=== PATIENT | female | born 1985 | race Caucasian/White ===

== ENCOUNTER 2020-10-28 20:10 | Emergency (ER) | payer OTHER ==
--- OUTSIDE RECORDS SUMMARY | 2020-10-28 20:13 | XMS REPORT | Continuity of Care Document ---
:1985 Author Organization [facility] t Address [address] [place] [address] Care Team Providers Name Role Phone Isaac MARTINEZ, Siraj Primary Care Physician Dc ELECTRONIC FIELD SERVICE ENGINEER, J Attending Clinician Nurse, Urgent Attending Clinician Unavailable Problems Condition Condition Condition Status Onset Resolution Last Treating Co mments Source Name Details Category Date Date Treatment Clinician Date Bipolar Bipolar Problem Active 0 [place] disorder Disorder 8-27 da 00:00: Medical 00 Group Dyspareuni Dyspareuni Problem Active 0 [facility] a a 3-20 da 00:00: Medical 00 Group Bacterial Bacterial Problem Active [facility] vaginosis Vaginosis [facility] Generalize Generalize Problem Active [facility] [place] d anxiety d Anxiety da disorder Disorder Medica l Group Hyperglyce Hyperglyce Problem Active [facility] dia dia da [facility] Allergies, Adverse Reactions, Alerts Allergy Allergy Status Severity Reaction(s) Onset Inactive Treating Comm ents Source Name Type Date Date Clinician Morphine Propensi Active Hives 0 [place] ty to 3-18 [facility] adverse 00:00: st reaction 00 s to drug Social History Social Habit Start Date Stop Date Quantity Comments Source History SDOH [place] [facility] Alcohol Std Drinks History SDOH [place] [facility] Alcohol Binge Tobacco use and 2018-09-26 2018-09-26 Former user [facility] exposure 00:00:00 00:00:00 Alcohol intake 2018-09-26 2018-09-26 Current [place] [facility] 00:00:00 00:00:00 non-drinker of alcohol (finding) History SDOH 2018-09-26 2018-09-26 1 [place] [facility] Alcohol Frequency 00:00:00 00:00:00 History of tobacco 2018-08-27 Chews Tobacco [facility] use 00:00:00 Sex Ass[birth year] At [birth year] [facility] 00:00:00 00:00:00 Smoking Status Start Date Stop Date Source Never Smoker [facility] Former smoker 2018-09-26 00:00:00 2018-09-26 00:00:00 [place] [facility] Medications Ordered Filled Start Stop Current Ordering Indication Dosage Frequency Signature Comments Components Source Medication Medication Date Date Medication? Clinician (SIG) Name Name citalopram Yes 40mg QD Take 40 mg [place] (CeleXA) 40 3-20 by mouth Meth bela MG tablet 19:27: nightly. st 17 doxepin Yes 100mg QD Take 100 [place] (SINEquan) 3-20 mg by [facility] 100 MG 19:27: mouth st capsule 17 nightly as needed for sleep. hydrOXYzine Yes 50mg Q.5D Take 50 mg [place] (ATARAX) 25 3-20 by mouth 2 Me thodi MG tablet 19:27: (two) st 17 times a day as needed for anxiety. lamoTRIgine Yes 25mg QD Take 25 mg [place] (LaMICtal) 3-20 by mouth Metho di 25 MG 19:27: daily. st tablet 17 acetaminoph acetaminoph No acetaminop [place] en 300 en 300 hen 300 da mg-codeine mg-codeine mg-codeine Medical 30 mg 30 mg 30 mg Group tablet 1-2 tablet 1-2 tablet 1-2 p.o. q 6 p.o. q 6 p.o. q 6 hours PRN hours PRN hours PRN pain pain pain buspirone buspirone No buspirone [place] 15 mg 15 mg 15 mg da tablet Take tablet Take tablet Medical 1 tablet 1 tablet Take 1 Group twice a day twice a day tablet by oral by oral twice a route. route. day by oral route. buspirone buspirone No buspirone [place] 30 mg 30 mg 30 mg da tablet Take tablet Take tablet Medical 1 tablet 1 tablet Take 1 Group twice a day twice a day tablet by oral by oral twice a route. route. day by oral route. ciprofloxac ciprofloxac No ciprofloxa [place] in 500 mg in 500 mg [place] 500 mg da tablet Take tablet Take tablet Medical 1 tablet 1 tablet Take 1 Group every 12 every 12 tablet hours by hours by every 12 oral route oral route hours by for 7 days. for 7 days. oral route for 7 days. citalopram citalopram No citalopram [place] 10 mg 10 mg 10 mg da tablet tablet tablet Medical Group citalopram citalopram No citalopram [place] 40 mg 40 mg 40 mg da tablet tablet tablet Medical Group clonazepam clonazepam No clonazepam [place] 1 mg tablet 1 mg tablet 1 mg d a TAKE 1 TAKE 1 tablet Medical TABLET BY TABLET BY TAKE 1 Jacob up MOUTH TWICE MOUTH TWICE TABLET BY DAILY DAILY MOUTH NEEDED FOR NEEDED FOR TWICE ANXIETY ANXIETY DAILY NEEDED FOR ANXIETY divalproex divalproex No divalproex [place] 500 mg 500 mg 500 mg da tablet,estevan tablet,estevan tablet,del Medical yed release yed release ayed G roup release doxepin 100 doxepin 100 No doxepin [place] mg capsule mg capsule 100 mg d a capsule Medical Group doxepin 25 doxepin 25 No doxepin 25 [place] mg capsule mg capsule mg capsule da Medical Group doxepin 50 doxepin 50 No doxepin 50 [place] mg capsule mg capsule mg capsule da Medical Group famotidine famotidine No famotidine [place] 20 mg 20 mg 20 mg da tablet tablet tablet Medical Group Flagyl 500 Flagyl 500 No 1 BID Flagyl 500 [place] mg tablet mg tablet mg tablet da Take 1 Take 1 Take 1 Medical tablet tablet tablet Group twice a day twice a day twice a by oral by oral day by route for 7 route for 7 oral route days. days. for 7 days. fluconazole fluconazole No fluconazol [place] 100 mg 100 mg e 100 mg da tablet tablet tablet Medical Group hydroxyzine hydroxyzine No hydroxyzin [place] HCl 50 mg HCl 50 mg e HCl 50 d a tablet tablet mg tablet Medica l Group hydroxyzine hydroxyzine No hydroxyzin [place] pamoate 50 pamoate 50 e pamoate da mg capsule mg capsule 50 mg Me dical capsule Group ibuprofen ibuprofen No ibuprofen [place] 800 mg 800 mg 800 mg da tablet Take tablet Take tablet Medical 1 tablet 1 tablet Take 1 Group every 6 every 6 tablet hours by hours by every 6 oral route oral route hours by as needed. as needed. oral route as needed. lamotrigine lamotrigine No lamotrigin [place] 25 mg 25 mg e 25 mg da tablet tablet tablet Medical Group medroxyprog medroxyprog No medroxypro [place] esterone 10 esterone 10 gesterone da mg tablet mg tablet 10 mg Medi jeanine two p.o. q two p.o. q tablet two Group day for one day for one p.o. q day month month for one month MoviPrep MoviPrep No MoviPrep [facility] 100 100 100 da gram-7.5 gram-7.5 gram-7.5 Med ical gram-2.691 gram-2.691 gram-2.691 Group gram oral gram oral gram oral powder powder powder packet packet packet Off Deep Off Deep No Off Deep [place] [facility] Schwab Dry Schwab Dry Schwab Dry da 25 % 25 % 25 % Medical topical topical topical Group spray spray spray powder powder powder oxcarbazepi oxcarbazepi No oxcarbazep [place] ne 600 mg ne 600 mg ine 600 mg da tablet tablet tablet Medical Group pantoprazol pantoprazol No pantoprazo [place] e 40 mg e 40 mg le 40 mg da tablet,estevan tablet,estevan tablet,del Medical yed release yed release ayed G roup release tamsulosin tamsulosin No tamsulosin [place] 0.4 mg 0.4 mg 0.4 mg da capsule capsule capsule Medica l Group Immunizations Ordered Immunization Filled Immunization Date Status Commen ts Source Name Name GUI TOVAR 2018-09-28 [facility] 00:00:00 [facility] Vital Signs Vital Name Observation Time Observation Value Comments Source BP Diastolic 2019-03-06 00:00:00 78 mm[Hg] [facility] Height 2019-03-06 00:00:00 24 [in_i] [facility] BMI (Body Mass 2019-03-06 00:00:00 208.7 [facility]m2 [facility] BP Systolic 2019-03-06 00:00:00 119 mm[Hg] [facility] Body Weight 2019-03-06 00:00:00 171 [lb_av] [facility] Procedures Procedure Date / Time Performing Clinician Source Performed Removal of Ovary/tube(s) 2016-10-01 00:00:00 [facility] Removal of Cervix 2016-10-01 00:00:00 [facility] Removal of Spleen Total 2012-07-12 00[facility]00:00 [facility] Hysterectomy 2010-04-02 00:00:00 [facility] Cholecystectomy 2009-07-12 00:00:00 [facility] Appendectomy 1995-07-12 00:00:00 [facility] Plan of Care Planned Activity Planned Date Details Comments Source Future Scheduled Test 2021-02-09 INFLUENZA VACCINE [place] [facility] 00:00:00 [code = INFLUENZA VACCINE] Diagnostic Test 2019-03-06 [facility] Pending 00:00:00 [code = [place], Group vaginal] Diagnostic Test 2019-03-06 pap test, thinprep, [facility] [facility] Pending 00:00:00 cervical [code = Group pap test, thinprep, cervical] Diagnostic Test 2019-03-06 urinalysis, [facility] Pending 00:00:00 dipstick [code = Group urinalysis, dipstick] Future Scheduled Test 2004 Screening for [place] [facility] 00:00:00 malignant neoplasm of cervix (procedure) [code = 296521764] Future Scheduled Test 2001 Hepatitis C [place] [facility] 00:00:00 screening (procedure) [code = 063913242] Future Scheduled Test 1999 COVID-19 VACCINE Marko sylvia [facility] 00:00:00 (1) [code = COVID-19 VACCINE (1)] Encounters Start End Encounter Admission Attending Care Care Encounter Source Date/Time Date/Time Type Type Clinicians Facility Department ID 2020-09-02 2020-09-02 Telephone Dc, RENEE [id number] 00:00:00 00:00:00 Gabriela [facility] [id number] Surgical [id number] Specialti [id number] es 370 Kimberly 2020-09-02 2020-09-02 Telephone Nurse, Raymond Phillip [id number] 00:00:00 00:00:00 Urgent Pediatric [id number] s and [id number] Adult [id number] Primary [facility] 2019-03-06 2019-03-06 Colin [facility] [place] - [id number] olman 00:00:00 00:00:00 Discovery marquies Truong MD: [address] [place] [address] - [facility] [address], [place] [address] , Ph. [phone] Results Test Description Test Time Test Comments Results Result Comments Source Urinalysis macro (dipstick) panel - Urine 2019-03-06 15:51:0 0 Test Item Value Reference Range Interpretation Comme nts Leukocytes (test code = Leukocytes) Negative Nitrite (test code = Nitrite) negative Urobilinogen (test code = Urobilinogen) .2 Protein (test code = Protein) Negative pH (test code = pH) 6.5 Blood (test code = Blood) Hemolyzed: Trace Specific [place] (test code = Specific [place]) 1.025 Ketone (test code = Ketone) Negative Bilirubin (test code = Bilirubin) Negative Glucose (test code = Glucose) Negative Appearance (test code = Appearance) Clear Color (test code = Color) Yellow [facility]
[2020-10-28 23:12] LABS: Urine Blood Trace-intact (Negative); Urine Glucose Negative (Negative); Urine Protein Negative (Negative); Urine Specific Gravity 1.025 (1.005-1.030)
[2020-10-28] MEDS ORDERED: MEPERIDINE HCL 50 MG/ML ONE (23:19)
[2020-10-28] MEDS ORDERED: ONDANSETRON 4 MG/2 ML VIAL ONE (23:19)
[2020-10-28 23:36] LABS: Absolute Lymphocytes (CBC) 4.5 K/uL (0.7-4.9); MPV 9.4 fL (7.6-11.3); RBC Red Blood Cell Count 4.21 M/uL (3.86-4.86)
[2020-10-28 23:55] LABS: Potassium 3.2 mmol/L (3.5-5.1)
[2020-10-29] MEDS ORDERED: KETOROLAC 30 MG/ML INJ ONE (00:52)
[2020-10-29 01:32] LABS: Urine Amorphous Sediment 4+ /HPF (NONE SEEN); Urine Bacteria <20 /HPF (<20); Urine RBC <5 /HPF (NONE SEEN); Urine Urothelial Cells <5 /HPF (NONE SEEN)
[2020-10-29 01:34] LABS: Urine Specific Gravity/Preg 1.025 (1.005-1.030)
--- NOTE | 2020-10-29 02:08 | ER ---
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 It jb4 fell out from under me and now my right arm, back, and left hip all hurt. I tried to tough it out but could not take the pain anymore. I did not pass out or hit my head. Coronavirus screen: Client denies travel out of the [place] in the last 14 days. At this time, the client does not indicate any symptoms associated with coronavirus-19. Ebola Screen: No symptoms or risks identified at this time. Initial Sepsis Screen: Does the patient meet any 2 criteria? No. Patient's initial sepsis screen is negative. Does the patient have a suspected source of infection? No. Patient's initial sepsis screen is negative. Risk Assessment: Do you want to hurt yourself or someone else? Patient reports no desire to harm self or others. Onset of symptoms was October 28, 2020. Transition of care: patient was not received from another setting of care. 20:57 Method Of Arrival: Ambulatory jb4 20:57 Acuity: YAIR 3 jb4 Historical: - Allergies: 21:01 Morphine; jb4 - PMHx: 21:01 thrombocytopenia; jb4 - PSHx: 21:01 Hysterectomy; splenectomy; Cholecystectomy; Appendectomy; jb4 - Immunization history:: Adult Immunizations up to date. - Social history:: Smoking status: Patient denies any tobacco usage or history of. Patient/guardian denies using alcohol, street drugs. Screenin:55 Abuse screen: Denies threats or abuse. Denies injuries from another. Nutritional sf screening: No deficits noted. Tuberculosis screening: No symptoms or risk factors identified. Fall Risk None identified. No fall in past 12 months (0 pts). No secondary diagnosis (0 pts). IV access (20 points). Ambulatory Aid- None/Bed Rest/Nurse Assist (0 pts). Gait- Normal/Bed Rest/Wheelchair (0 pts) Mental Status- Oriented to own ability (0 pts). Total Pham Fall Scale indicates No Risk (0-24 pts). Assessment: 22:55 General: Appears in no apparent distress. uncomfortable, Behavior is calm, cooperative. sf Pain: Complains of pain in back. Neuro: No deficits noted. Level of Consciousness is awake, alert, Oriented to person, place, time, situation. Cardiovascular: No deficits noted. Respiratory: No deficits noted. GI: No deficits noted. : No signs and/or symptoms were reported regarding the genitourinary system. Urine is cloudy. Derm: No signs and/or symptoms reported regarding the dermatologic system. Musculoskeletal: Circulation, motion, and sensation intact. Range of motion: intact in all extremities, Reports pain in back. 10/29 00:00 Reassessment: Patient appears in no apparent distress at this time. No changes from sf previously documented assessment. Patient and/or family updated on plan of care and expected duration. Pain level reassessed. Patient is alert, oriented x 3, equal unlabored respirations, skin warm/dry/pink. 00:40 Reassessment: Patient appears in no apparent distress at this time. Patient and/or sf family updated on plan of care and expected duration. Pain level reassessed. Patient is alert, oriented x 3, equal unlabored respirations, skin warm/dry/pink. 01:33 Reassessment: Patient appears in no apparent distress at this time. Patient and/or sf family updated on plan of care and expected duration. Pain level reassessed. Patient is alert, oriented x 3, equal unlabored respirations, skin warm/dry/pink. Patient states feeling better. Patient states symptoms have improved. Pain: Complains of pain in back Pain currently is 3 out of 10 on a pain scale. Vital Signs: 10/28 20:57 BP 122 / 86; Pulse 92; Resp 18; Temp 98.6(O); Pulse Ox 100% on R/A; Weight 78.02 kg jb4 (R); Height 5 ft. 0 in. (152.40 cm) (R); Pain /10; 22:50 BP 121 / 70 LA (auto/reg); Pulse 87; Pulse Ox 100% on R/A; jp3 23:00 BP 127 / 74; Pulse 80; Resp 16; Pulse Ox 99% ; sf 10/29 00:00 BP 118 / 73; Pulse 81; Resp 16; Pulse Ox 100% ; sf 00:39 BP 123 / 81; Pulse 87; Resp 16; Pulse Ox 99% ; sf 01:00 BP 123 / 64; Pulse 86; Resp 16; Pulse Ox 100% ; sf 02:00 BP 105 / 66; Pulse 81; Resp 16; Pulse Ox 97% ; sf 10/28 20:57 Body Mass Index 33.59 (78.02 kg, 152.40 cm) jb4 ED Course: 10/28 20:11 Patient arrived in ED. cl3 21:00 Triage completed. jb4 21:01 Arm band placed on right wrist. jb4 22:33 Petey Nova NP is PHCP. pm1 22:33 Kareem King MD is Attending Physician. pm1 22:50 Initial lab(s) drawn, by me, sent to lab. Inserted saline lock: 20 gauge in right jp3 antecubital area, using aseptic technique. Blood collected. 22:55 Bay Fuentes, YENI is Primary Nurse. sf 22:55 No provider procedures requiring assistance completed. sf 22:56 Bed in low position. Call light in reach. Side rails up X 1. Warm blanket given. Verbal jp3 reassurance given. Pulse ox on. NIBP on. 23:00 Urine collected: clean catch specimen, cloudy. sf 10/29 00:53 CT Chest, Abdomen, Pelvis - W/Contrast In Process Unspecified. EDMS 02:35 IV discontinued, intact, bleeding controlled, No redness/swelling at site. Pressure sf dressing applied. Administered Medications: 10/28 23:00 Drug: Demerol (meperidine) 50 mg Route: IVP; Site: right antecubital; sf 10/29 00:00 Follow up: Response: No adverse reaction; Pain is unchanged, physician notified sf 10/28 23:00 Drug: Zofran (Ondansetron) 4 mg Route: IVP; Site: right antecubital; sf 10/29 00:00 Follow up: Response: No adverse reaction; Pain is unchanged, physician notified 00:43 Drug: Ketorolac 30 mg Route: IVP; Site: right antecubital; sf 02:36 Follow up: Response: No adverse reaction; Pain is decreased sf Outcome: 02:07 Discharge ordered by MD. pm1 02:35 Discharged to home ambulatory. sf 02:35 Condition: stable 02:35 Discharge instructions given to patient, Instructed on discharge instructions, follow up and referral plans. medication usage, Demonstrated understanding of instructions, follow-up care, medications, Prescriptions given X 3. 02:36 Patient left the ED. sf Signatures: Dispatcher [employer] EDMS Petey Nova NP PENSIONHOLDER INFORMATION CLERK pm1 Ravi Lemus, RN RN jb4 Ritesh Michele 3 Truman Cruz cl3 Bay Fuentes RN RN sf
--- NOTE | 2020-10-29 02:08 | EDPHYS ---
Physician Documentation [facility] Name: Maria Victoria Avery Age: 35 yrs Sex: Female : 1985 Arrival Date: 10/28/2020 Time: 20:11 Bed 20 Private MD: ED Physician Kareem King HPI: 10/28 23:06 This 35 yrs old Female presents to ER via Ambulatory with complaints of Low pm1 Back Pain, Right Side Pain. 23:06 The patient presents with pain that is acute. The symptoms are located in the low back, pm1 right hip pain. The pain does not radiate. The problem was sustained during a fall, from the ladder on top bunk bed, approximately 5 feet. Onset: The symptoms/episode began/occurred today. Modifying factors: The patient symptoms are alleviated by nothing, the patient symptoms are aggravated by movement. Associated signs and symptoms: Pertinent negatives: headache, head injury, LOC, neck pain. Severity of symptoms: in the emergency department the symptoms are unchanged. The patient has not experienced similar symptoms in the past. Historical: - Allergies: 21:01 Morphine; jb4 - PMHx: 21:01 thrombocytopenia; jb4 - PSHx: 21:01 Hysterectomy; splenectomy; Cholecystectomy; Appendectomy; jb4 - Immunization history:: Adult Immunizations up to date. - Social history:: Smoking status: Patient denies any tobacco usage or history of. Patient/guardian denies using alcohol, street drugs. ROS: 23:06 Constitutional: Negative for fever, chills, and weight loss, Neck: Negative for injury, pm1 pain, and swelling, Cardiovascular: Negative for chest pain, palpitations, and edema, Respiratory: Negative for shortness of breath, cough, wheezing, and pleuritic chest pain, Abdomen/GI: Negative for abdominal pain, nausea, vomiting, diarrhea, and constipation, : Negative for injury, bleeding, discharge, and swelling, MS/Extremity: Negative for injury and deformity, Skin: Negative for injury, rash, and discoloration. 23:06 Neuro: Negative for headache, weakness, numbness, tingling, and seizure. 23:06 Back: Positive for of the left low back and right mid back, pain. Exam: 23:06 Constitutional: This is a well developed, well nourished patient who is awake, alert, pm1 and in no acute distress. Head/Face: Normocephalic, atraumatic. Neck: Trachea midline, no thyromegaly or masses palpated, and no cervical lymphadenopathy. Supple, full range of motion without nuchal rigidity, or vertebral point tenderness. No Meningismus. Chest/axilla: Normal chest wall appearance and motion. Nontender with no deformity. No lesions are appreciated. 23:06 Skin: Warm, dry with normal turgor. Normal color with no rashes, no lesions, and no evidence of cellulitis. MS/ Extremity: Pulses equal, no cyanosis. Neurovascular intact. Full, normal range of motion. 23:06 Cardiovascular: Exam negative for acute changes, Rate: normal, Rhythm: regular, Pulses: no pulse deficits are appreciated. 23:06 Respiratory: Exam negative for acute changes, respiratory distress, shortness of breath, Breath sounds: are clear throughout. 23:06 Abdomen/GI: Exam negative for acute changes, Inspection: abdomen appears normal, Palpation: abdomen is soft and non-tender, in all quadrants. 23:06 Back: pain, that is mild, of the left low back and right mid back. 23:06 Neuro: Exam negative for acute changes, Orientation: is normal, Mentation: is normal, Motor: is normal, moves all fours. Vital Signs: 20:57 BP 122 / 86; Pulse 92; Resp 18; Temp 98.6(O); Pulse Ox 100% on R/A; Weight 78.02 kg jb4 (R); Height 5 ft. 0 in. (152.40 cm) (R); Pain 7/10; 22:50 BP 121 / 70 LA (auto/reg); Pulse 87; Pulse Ox 100% on R/A; jp3 23:00 BP 127 / 74; Pulse 80; Resp 16; Pulse Ox 99% ; sf 10/29 00:00 BP 118 / 73; Pulse 81; Resp 16; Pulse Ox 100% ; sf 00:39 BP 123 / 81; Pulse 87; Resp 16; Pulse Ox 99% ; sf 01:00 BP 123 / 64; Pulse 86; Resp 16; Pulse Ox 100% ; sf 02:00 BP 105 / 66; Pulse 81; Resp 16; Pulse Ox 97% ; sf 10/28 20:57 Body Mass Index 33.59 (78.02 kg, 152.40 cm) jb4 MDM: 04/19 22:35 Patient medically screened. [facility] 10/29 02:05 Data reviewed: vital signs. Data interpreted: Pulse oximetry: on room air is 100 %. pm1 Interpretation: normal. Counseling: I had a detailed discussion with the patient and/or guardian regarding: the historical points, exam findings, and any diagnostic results supporting the discharge/admit diagnosis, lab results, radiology results, the need for outpatient follow up, to return to the emergency department if symptoms worsen or persist or if there are any questions or concerns that arise at home. 10/28 22:42 Order name: BMP; Complete Time: 23:57 pm1 10/28 22:42 Order name: CBC with Diff; Complete Time: 23:49 pm1 10/28 22:42 Order name: CT Chest, Abdomen, Pelvis - W/Contrast pm1 10/28 23:12 Order name: Urine Dipstick-Ancillary; Complete Time: 23:49 EDMS 10/28 23:16 Order name: Urine Microscopic Only; Complete Time: 02:05 10/28 23:16 Order name: Urine --Ancillary (enter results); Complete Time: 02:05 mw2 10/28 22:42 Order name: IV Saline Lock; Complete Time: 22:56 pm1 10/28 22:42 Order name: Urine Dipstick-Ancillary (obtain specimen); Complete Time: 23:06 pm1 10/28 22:42 Order name: Urine Test (obtain specimen); Complete Time: 23:06 pm1 Administered Medications: 10/28 23:00 Drug: Demerol (meperidine) 50 mg Route: IVP; Site: right antecubital; 10/29 00:00 Follow up: Response: No adverse reaction; Pain is unchanged, physician notified 10/28 23:00 Drug: Zofran (Ondansetron) 4 mg Route: IVP; Site: right antecubital; sf 10/29 00:00 Follow up: Response: No adverse reaction; Pain is unchanged, physician notified 00:43 Drug: Ketorolac 30 mg Route: IVP; Site: right antecubital; 02:36 Follow up: Response: No adverse reaction; Pain is decreased sf Disposition: 10:36 Co-signature as Attending Physician, Kareem King MD I agree with the assessment and [facility] plan of care. Disposition: 10/29/20 02:07 Discharged to Home. Impression: Contusion of lower back and pelvis, Fall on and from ladder. - Condition is Stable. - Discharge Instructions: Contusion, Fall Prevention in the Home. - Prescriptions for Tylenol- Codeine #3 300-30 mg Oral Tablet - take 2 tablets by ORAL route every 4-6 hours As needed; 20 tablet. Cyclobenzaprine 10 mg Oral Tablet - take 1 tablet by ORAL route every 8 hours As needed; 30 tablet. Diclofenac Sodium 75 mg Oral Tablet, Delayed Release (E.C.) - take 1 tablet by ORAL route 2 times per day As needed; 30 tablet. - Medication Reconciliation Form, Thank You Letter, Antibiotic Education, Prescription Opioid Use form. - Follow up: Emergency Department; When: As needed; Reason: Worsening of condition. Follow up: Private Physician; When: 2 - 3 days; Reason: Recheck today's complaints, Continuance of care, Re-evaluation by your physician. - Problem is new. - Symptoms have improved. Signatures: Dispatcher [employer] EDMS Kareem King MD MD cha Marinas, Patrick, NP CAR CARDER pm1 Ravi Lemus, RN RN jb4 Bay Fuentes RN RN sf Corrections: (The following items were deleted from the chart) 02:36 02:07 10/29/2020 02:07 Discharged to Home. Impression: Contusion of lower back and sf pelvis; Fall on and from ladder. Condition is Stable. Forms are Medication Reconciliation Form, Thank You Letter, Antibiotic Education, Prescription Opioid Use. Follow up: Emergency Department; When: As needed; Reason: Worsening of condition. Follow up: Private Physician; When: 2 - 3 days; Reason: Recheck today's complaints, Continuance of care, Re-evaluation by your physician. Problem is new. Symptoms have improved. pm1
[2020-10-29 04:20] VITALS: TEMP 98.6
[2020-10-29 04:27] VITALS: BP 105/66; O2SAT 97
--- NOTE | 2020-10-29 10:23 | RAD REPORT ---
EXAM DESCRIPTION: CT - Chest Abdomen Pelvis W Cont - 10/29/2020 7:05 am CLINICAL HISTORY: The patient is 35 years old and is Female; Fall TECHNIQUE: Axial computed tomography images of the chest, abdomen and pelvis with intravenous contra st. Sagittal and coronal reformatted images were created and reviewed. This CT exam was performed using one or more of the following dose reduction techniques: automated exposure control, adjustme nt of the mA and/or kV according to patient size, and/or use of iterative reconstruction technique. COMPARISON: No relevant prior studies available. FINDINGS: CHEST: LUNGS: A 5 mm nodule within the left lower lobe is present. No routine follow-up imaging is recom mended. The lungs are otherwise clear. PLEURAL SPACE: Unremarkable. No significant effusion. No pneumothorax. HEART: No cardiomegaly. No pericardial effusion. MEDIASTINUM: A small hiatal hernia is present. ABDOMEN: LIVER: The liver is enlarged and diffusely fatty. GALLBLADDER AND BILE DUCTS: Surgical clips are present in the right upper quadrant, consistent wi previous cholecystectomy. PANCREAS: No ductal dilation. No mass. SPLEEN: The spleen is surgically absent. ADRENALS: Unremarkable. No mass. KIDNEYS AND URETERS: Unremarkable. The kidneys enhance symmetrically. No obstructing renal or ure teral calculus is seen. No hydronephrosis or hydroureter. No perinephric fluid or stranding. STOMACH AND BOWEL: The stomach is well distended with food contents. The small bowel is normal in caliber. A moderate amount stool is present throughout colon. There is no mucosal thickening or evid ence of bowel obstruction. PELVIS: APPENDIX: The appendix is surgically absent. BLADDER: Unremarkable. No mass. REPRODUCTIVE: The patient is status post hysterectomy. A 2.5 cm right ovarian cyst is present. No follow-up imaging is recommended. CHEST, ABDOMEN and PELVIS: INTRAPERITONEAL SPACE: Unremarkable. No significant fluid collection. No free air. BONES/JOINTS: Mild serpentine scoliotic curvature of the thoracolumbar spine is present. There is no acute fracture of the visualized axial and appendicular skeleton. SOFT TISSUES: The soft tissues are normal. VASCULATURE: Unremarkable. No aortic aneurysm. LYMPH NODES: Unremarkable. No enlarged lymph nodes. IMPRESSION: No evidence of solid organ injury or traumatic bony findings on this contrasted CT of e chest, abdomen, and pelvis. Electronically signed by: Riana Haas MD 10/29/2020 1:23 AM CDT Due to temporary technical issues with the PACS/Fluency reporting system, reports are being signed by the in house radiologists without review as a courtesy to insure prompt reporting. The interpreting radiologist is fully responsible for the content of the report.
== END 2020-10-29 02:36 | disposition home or self-care (01) ==
LOC: ER 20:10
DX: S30.0XXA Contusion of lower back and pelvis, initial encounter (principal); W11.XXXA Fall on and from ladder, initial encounter; Y93.89 Activity, other specified; Y92.9 Unspecified place or not applicable; Z88.5 Allergy status to narcotic agent
CPT/HCPCS: 85025; 80048; 36415; 81025; 71260; 74177; Q9967; J2175; J2405; 81003; 81015; 96374; 96375; 99284

== ENCOUNTER 2022-04-03 07:33 | Day surgery (SDC) | payer OTHER ==
[2022-04-01 15:58] LABS: SARS-CoV-2 Antigen Rapid Res Negative (Negative)
[2022-04-03] MEDS ORDERED: Ringers Lactate 1,000 ML IV ONE (07:47)
[2022-04-03] MEDS ORDERED: FENTANYL CITR 100 MCG/2 ML ONE ×3 (08:51→10:26)
[2022-04-03] MEDS ORDERED: MIDAZOLAM HCL 2 MG/2 ML INJ ONE (08:52)
[2022-04-03] MEDS ORDERED: propofoL 200 MG/20 ML VIAL IV ONE (08:52)
[2022-04-03] MEDS ORDERED: ROCURONIUM 50 MG/5 ML VIAL IV ONE (08:52)
[2022-04-03] MEDS ORDERED: dexAMETHasone 10 MG/ML VIAL ONE (08:52)
[2022-04-03] MEDS ORDERED: LIDOCAINE 1% MPF 2 ML AMPULE ONE (08:56)
[2022-04-03] MEDS ORDERED: BUPIVACAINE 0.5% PF 10 ML VIAL ONE (08:57)
[2022-04-03] MEDS ORDERED: EPINEPHRINE/PF 1 MG/ML AMP ONE (08:57)
[2022-04-03] MEDS ORDERED: ONDANSETRON 4 MG/2 ML VIAL ONE (09:09)
--- NOTE | 2022-04-03 09:35 | P.OP ---
Date of Service: 04/03/22 Preoperative diagnosis: [Recurrent acute tonsillitis,] [Chronic tonsillitis,] [Tonsillolithiasis], halitosis Postoperative diagnosis: [Same] Procedure: Tonsillectomy Surgeon: Jolene Dubose MD Cleaning Maid: None Anesthesia: General via endotracheal tube IV fluids: [3]ml crystalloid Estimated blood loss: Minimal, less than 5 mL Specimen: [bilateral tonsils] Findings: Submucosal tonsils with deep crypts and tonsil stones. Dental avulsions and caries Implants: None Indication: patient with persistent symptoms and findings in spite of good medical management. Details of operation: The patient was brought to the operating room and placed under general anesthesia via oral endotracheal tube. The head of bed was turned 90 degrees. A shoulder roll was placed and the neck was extended. A head drape was applied. The McIvor mouthgag was placed and suspended from the Dhillon stand. The oxygen concentration was confirmed with the anesthesiologist and was less than 40%. Weight-based dexamethasone was administered by the anesthesiologist. The soft palate was palpated and there was no submucous cleft. A red rubber catheter was placed in the nose and the tip withdrawn through the mouth and secured to the head drape for retraction of the soft palate. The tonsils were noted to be medium in size with significant submucosal component, chronic inflammation and tonsil stones. The left tonsil was grasped with a straight Allis clamp. The Bovie electrocautery was used to incise the mucosa over the anterior pillar and identified the tonsillar capsule. The tonsil was dissected using cautery and blunt dissection until free from soft tissue attachments. A tonsil ball was placed to aid in hemostasis. The right tonsil was removed in a similar manner. The tonsillar fossa's were injected with 0.5% Marcaine; a total of 3 milliliters was used. The oropharynx was irrigated with cold saline. After suc tioning, a [place] sump orogastric tube was passed for decompression of the stomach. The red rubber catheter was removed and used to suction the oropharynx, nasopharynx, and nasal cavities. The McIvor mouthgag was removed. There was no evidence of injury to the teeth, lips, or tongue. The mandible was mobile. The patient was then awakened from anesthesia and extubated in the operating room, taken to the recovery room in stable condition. Disposition: The patient will be discharged home later today in the care of their family with written postoperative instructions and appropriate pain medications. They will follow-up in Dr. Dubose's office in approximately 1 month. They are instructed to contact Dr. Dubose's office for any bleeding or other concerns.
[2022-04-03] MEDS ORDERED: HYDROMORPHONE HCL 1 MG/ML INJ IV ONE ×2 (09:50→10:07)
[2022-04-03] MEDS ORDERED: HYDROMORPHONE HCL 1 MG/ML INJ ONE (09:59)
[2022-04-03] MEDS ORDERED: FENTANYL CITR 100 MCG/2 ML IV ONE ×2 (10:17→10:30)
[2022-04-03 10:24] VITALS: O2SAT 98
[2022-04-03] MEDS ORDERED: HYDROCOD 2.5mg-ACETAMIN 108mg/5mL Soln ONE (11:08)
[2022-04-03 11:31] VITALS: BP 114/71; TEMP 98.4
== END 2022-04-03 11:27 | disposition home or self-care (01) ==
LOC: OR 07:33
PROVIDERS: ATTEND Otolaryngology
PROC: 0CTPXZZ Resection of Tonsils, External Approach (ICD-10-PCS; principal; 2022-04-03 08:45)
DX: J35.01 Chronic tonsillitis (principal); J35.8 Other chronic diseases of tonsils and adenoids; R19.6 Halitosis; Z20.822 Contact with and (suspected) exposure to COVID-19
CPT/HCPCS: 36415; 88304; 87811; 42826; J2704; J0171; J2250; J3010 ×5; J1100; J1170 ×3; J7120; J2405

== ENCOUNTER 2022-09-14 06:07 | Emergency (ER) | payer OTHER ==
[2022-09-14] MEDS ORDERED: ASPIRIN 81 MG CHEWABLE TABLET ONE (06:25)
[2022-09-14 06:46] LABS: Absolute Lymphocytes (CBC) 4.1 K/uL (0.7-4.9); Hematocrit 34.3 % (36.0-45.0); Lymphocytes % 29.6 % (15.3-44.8); MCV 90.3 fL (80-100); MPV 8.8 fL (7.6-11.3)
[2022-09-14] MEDS ORDERED: LORAZEPAM 1 MG TABLET ONE (06:51)
[2022-09-14 07:02] LABS: ALT/SGPT 26 U/L (13-56); AST/SGOT 14 U/L (15-37); Albumin 3.7 g/dL (3.4-5.0); Alkaline Phosphatase 68 U/L (45-117); BUN Blood Urea Nitrogen 14 mg/dL (7-18); Bicarbonate 24 mmol/L (21-32); Bilirubin Total 0.1 mg/dL (0.2-1.0); Glomerular Filtration Rate 99 ml/min (=/>90); Glucose Level 97 mg/dL (74-106); NT PRO-BNP 34 pg/mL (<125); Potassium 3.6 mmol/L (3.5-5.1); Protein, Total 7.8 g/dL (6.4-8.2); Sodium Level 137 mmol/L (136-145); Troponin High Sensitivity 3.5 pg/mL (<58.9)
[2022-09-14 07:02] LABS: Urine Blood Trace-intact (Negative); Urine Glucose Negative (Negative); Urine Protein Negative (Negative); Urine Specific Gravity >=1.030 (1.005-1.030)
[2022-09-14 07:03] LABS: Bilirubin Direct < 0.1 mg/dL (0-0.2)
--- NOTE | 2022-09-14 07:34 | ER ---
Nurse's Notes [facility] Name: Maria Victoria Avery Age: 37 yrs Sex: Female : 1985 Arrival Date: 09/14/2022 Time: 06:09 Bed 7 Private MD: Diagnosis: Anxiety disorder, unspecified;Acute anxiety reaction, acute stress reaction, noncardiac chest pain Presentation: 09/14 06:25 Chief complaint: Patient states: left side chest pain of 4,onset 0400 with SOB. 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 Coronavirus screen: Vaccine status: Patient reports receiving the 2nd dose of the covid vaccine. Client denies travel out of the [place] in the last 14 days. Client presents with at least one sign or symptom that may indicate coronavirus-19. Standard/surgical mask placed on the client. Ebola Screen: Patient negative for fever greater than or equal to 101.5 degrees Fahrenheit, and additional compatible Ebola Virus Disease symptoms. Initial Sepsis Screen: Does the patient meet any 2 criteria? No. Patient's initial sepsis screen is negative. Does the patient have a suspected source of infection? No. Patient's initial sepsis screen is negative. Risk Assessment: Do you want to hurt yourself or someone else? Patient reports no desire to harm self or others. Onset of symptoms was September 14, 2022 at 04:00. 06:25 Method Of Arrival: Ambulatory pf1 06:25 Acuity: YAIR 2 pf1 Historical: - Allergies: 06:29 Morphine; pf1 - Home Meds: 06:29 Trazodone Oral [Active]; pf1 - PMHx: 06:29 thrombocytopenia; Anxiety; pf1 06:31 insomnia; pf1 - PSHx: 06:32 Total abdominal hysterectomy; Appendectomy; Cholecystectomy; Splenectomy; pf1 - Immunization history:: Adult Immunizations up to date, Client reports receiving the 2nd dose of the Covid vaccine, Flu vaccine is up to date. - Social history:: Smoking status: unknown. - Family history:: not pertinent. - Hospitalizations: : No recent hospitalization is reported. Screenin:[facility] ED Fall Risk Assessment (Adult) History of falling in the last 3 months, pf1 including since admission No falls in past 3 months (0 pts) Confusion or Disorientation No (0 pts) Intoxicated or Sedated No (0 pts) Impaired Gait No (0 pts) Mobility Assist Device Used No (0 pt) Altered Elimination No (0 pt) Score/Fall Risk Level 0 - 2 = Low Risk Oriented to surroundings, Maintained a safe environment, Educated pt \T\ family on fall prevention, incl call for assistance when getting out of bed, Assessed \T\ reinforced patient's understanding of fall precautions, Provided non-skid footwear, Hourly rounding (assess needs \T\ fall precautionary measures) done, Used ambulatory aids as needed (educated on \T\ assisted with), Used gait belt as appropriate. Abuse screen: Denies threats or abuse. Nutritional screening: No deficits noted. Tuberculosis screening: No symptoms or risk factors identified. Assessment: 06:36 General: Appears uncomfortable, Behavior is calm, cooperative. Pain: Pain does not kd3 radiate. Pain began gradually. Cardiovascular: Patient's skin is warm and dry. 07:45 Reassessment: Patient appears in no apparent distress at this time. Patient and/or ph family updated on plan of care and expected duration. Pain level reassessed. Patient is alert, oriented x 3, equal unlabored respirations, skin warm/dry/pink. Vital Signs: 06:25 BP 137 / 75; Pulse 70; Resp 18; Temp 98.8; Pulse Ox 100% on R/A; Weight 76.2 kg; Height pf1 5 ft. 0 in. (152.40 cm); Pain 4/10; 06:37 BP 126 / 80; Pulse 70; Resp 16; Pulse Ox 100% ; kd3 07:45 BP 132 / 70; Pulse 68; Resp 18; Temp 97.9; Pulse Ox 99% on R/A; ph 06:25 Body Mass Index 32.81 (76.20 kg, 152.40 cm) pf1 ED Course: 06:09 Patient arrived in ED. jj6 06:10 Sujit Deshpande MD is Attending Physician. sp4 06:19 Inge murphy, YENI is Primary Nurse. pf1 06:29 Triage completed. pf1 06:37 Patient has correct armband on for positive identification. Client placed on continuous kd3 cardiac and pulse oximetry monitoring. NIBP monitoring applied. signal tower operator on. 06:37 No provider procedures requiring assistance completed. Patient maintains SpO2 kd3 saturation greater than 95% on room air. 06:38 Primary Nurse role handed off by Inge murphy RN kd3 06:38 Luiza Banda, RN is Primary Nurse. kd3 06:39 Inserted saline lock: 20 gauge in right wrist, using aseptic technique. Blood collected.rv1 06:40 Basic Metabolic Panel Sent. rv1 06:40 CBC with Diff Sent. rv1 06:40 D-Dimer Sent. rv1 06:40 LFT's Sent. rv1 06:40 NT PRO-BNP Sent. rv1 06:40 PT-INR Sent. rv1 06:40 Troponin HS Sent. rv1 07:32 Jefferson Narvaez MD is Referral Physician. sp4 07:45 IV discontinued, intact, bleeding controlled, No redness/swelling at site. Pressure ph dressing applied. Administered Medications: 06:22 Drug: Aspirin Chewable Tablet 324 mg Route: PO; kd3 07:46 Follow up: Response: No adverse reaction ph 06:55 Drug: Ativan (LORazepam) 2 mg Route: PO; kd3 07:45 Follow up: Response: No adverse reaction ph Medication: 06:37 VIS not applicable for this client. kd3 Outcome: 07:34 Discharge ordered by . sp4 07:46 Discharged to home ambulatory. ph 07:46 Condition: good 07:46 Discharge instructions given to patient, Instructed on discharge instructions, follow up and referral plans. Demonstrated understanding of instructions, follow-up care. 07:46 Patient left the ED. ph Signatures: Latonia Simmons RN RN ph Yanely Delatorre jj6 Luiza Banda RN RN kd3 Inge murphy, YENI RN Jazmine Varghese rv1 Sujit Deshpande MD MD sp4
--- NOTE | 2022-09-14 07:34 | EDPHYS ---
Physician Documentation [facility] Name: Maria Victoria Avery Age: 37 yrs Sex: Female : 1985 Arrival Date: 09/14/2022 Time: 06:09 Bed 7 Private MD: ED Physician Sujit Deshpande HPI: 09/14 06:45 This 37 yrs old Female presents to ER via Ambulatory with complaints of Chest sp4 Pain, Cough. 06:45 The patient or guardian reports chest pain that is located primarily in the substernal sp4 area, anterior aspect of left upper chest, mid-sternal area and left breast. 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 Patient denied fever denied vomiting and denied exertional chest pain in the past several weeks. Historical: - Allergies: 06:29 Morphine; pf1 - Home Meds: 06:29 Trazodone Oral [Active]; pf1 - PMHx: 06:29 thrombocytopenia; Anxiety; pf1 06:31 insomnia; pf1 - PSHx: 06:32 Total abdominal hysterectomy; Appendectomy; Cholecystectomy; Splenectomy; pf1 - Immunization history:: Adult Immunizations up to date, Client reports receiving the 2nd dose of the Covid vaccine, Flu vaccine is up to date. - Social history:: Smoking status: unknown. - Family history:: not pertinent. - Hospitalizations: : No recent hospitalization is reported. ROS: 07:22 Constitutional: Negative for fever, chills, and weight loss, Eyes: Negative for injury, sp4 pain, redness, and discharge, ENT: Negative for injury, pain, and discharge, Neck: Negative for injury, pain, and swelling, Cardiovascular: Negative for edema, positive for chest pain, left-sided chest pain, shortness of breath, and anxiety Respiratory: Negative for cough, wheezing, and pleuritic chest pain, Abdomen/GI: Negative for abdominal pain, nausea, vomiting, diarrhea, and constipation, Back: Negative for injury and pain, : Negative for injury, bleeding, discharge, and swelling, MS/Extremity: Negative for injury and deformity, Skin: Negative for injury, rash, and discoloration, Neuro: Negative for headache, weakness, numbness, tingling, and seizure, Psych: Negative for depression, anxiety, suicide ideation, homicidal ideation, and hallucinations, Allergy/Immunology: Negative for hives, rash, and allergies, Endocrine: Negative for neck swelling, polydipsia, polyuria, polyphagia, and marked weight changes, Hematologic/Lymphatic: Negative for swollen nodes, abnormal bleeding, and unusual bruising. Exam: 07:22 Constitutional: This is a well developed, well nourished patient who is awake, alert, sp4 and in no acute distress. Head/Face: Normocephalic, atraumatic. Eyes: Pupils equal round and reactive to light, extra-ocular motions intact. Lids and lashes normal. Conjunctiva and sclera are non-icteric and not injected. Cornea within normal limits. Periorbital areas with no swelling, redness, or edema. ENT: Nares patent. No nasal discharge, no septal abnormalities noted. Tympanic membranes are normal and external auditory canals are clear. Oropharynx with no redness, swelling, or masses, exudates, or evidence of obstruction, uvula midline. Mucous membranes moist. Neck: Trachea midline, no thyromegaly or masses palpated, and no cervical lymphadenopathy. Supple, full range of motion without nuchal rigidity, or vertebral point tenderness. No Meningismus. Chest/axilla: Normal chest wall appearance and motion. Nontender with no deformity. No lesions are appreciated. Cardiovascular: Regular rate and rhythm with a normal S1 and S2. No gallops, murmurs, or rubs. Normal PMI, no JVD. No pulse deficits. Respiratory: Lungs have equal breath sounds bilaterally, clear to auscultation and percussion. No rales, rhonchi or wheezes noted. No increased work of breathing, no retractions or nasal flaring. Abdomen/GI: Soft, non-tender, with normal bowel sounds. No distension or tympany. No guarding or rebound. No evidence of tenderness throughout. Back: No spinal tenderness. No costovertebral tenderness. Full range of motion. Skin: Warm, dry with normal turgor. Normal color with no rashes, no lesions, and no evidence of cellulitis. MS/ Extremity: Pulses equal, no cyanosis. Neurovascular intact. Full, normal range of motion. Neuro: Awake and alert, GCS 15, oriented to person, place, time, and situation. Cranial nerves II-XII grossly intact. Motor strength 5/5 in all extremities. Sensory grossly intact. Cerebellar exam normal. Normal gait. 07:22 ECG was reviewed by the Attending Physician. At 625 in the morning, normal sinus rhythm sp4 with sinus arrhythmia at a rate of 66, no ST elevation or depression, no ectopy, normal intervals, overall normal EKG Vital Signs: 06:25 BP 137 / 75; Pulse 70; Resp 18; Temp 98.8; Pulse Ox 100% on R/A; Weight 76.2 kg; Height pf1 5 ft. 0 in. (152.40 cm); Pain 4/10; 06:37 BP 126 / 80; Pulse 70; Resp 16; Pulse Ox 100% ; kd3 07:45 BP 132 / 70; Pulse 68; Resp 18; Temp 97.9; Pulse Ox 99% on R/A; ph 06:25 Body Mass Index 32.81 (76.20 kg, 152.40 cm) pf1 MDM: 06:10 Patient medically screened. sp4 07:22 Differential diagnosis: anxiety, chest wall pain, congestive heart failure sp4 costochondritis, esophagitis, gastritis, gastroesophageal reflux disease (GERD), hiatal hernia. HEART Score: History: Slightly Suspicious (0), ECG: Normal (0), Age: < or = 45 years (0), Risk Factors: No Risk Factors Known (0), Troponin: < or = 1 x Normal Limit (0), Total Score = 0. RIVKA Risk Score: TOTAL SCORE = 0. Data reviewed: vital signs, nurses notes, lab test result(s), EKG, radiologic studies, plain films. ED course: Chest x-ray revealed some scoliosis but otherwise unremarkable x-ray, patient's work-up is negative today, symptoms likely attributable to the anxiety will advise to see primary care doctor for management of anxiety attacks, but will also mention that patient should see law office manager in case of recurrent or persistent chest pains. 07:32 ED course: Patient has improved after medications in the emergency room and he is sp4 stable for release home. 09/14 06:11 Order name: Basic Metabolic Panel sp4 09/14 06:11 Order name: CBC with Diff sp4 09/14 06:11 Order name: D-Dimer sp4 09/14 06:11 Order name: LFT's sp4 09/14 06:11 Order name: NT PRO-BNP 4 09/14 06:11 Order name: PT-INR 4 09/14 06:11 Order name: Troponin HS 4 09/14 06:11 Order name: EKG; Complete Time: 06:12 sp4 09/14 06:11 Order name: Cardiac monitoring; Complete Time: 06:40 sp4 09/14 06:11 Order name: EKG - Nurse/Tech; Complete Time: 06:26 sp4 09/14 06:11 Order name: IV Saline Lock; Complete Time: 06:39 sp4 09/14 06:11 Order name: Labs collected and sent; Complete Time: 06:39 sp4 09/14 06:11 Order name: O2 Per Protocol; Complete Time: 06:39 sp4 09/14 06:11 Order name: O2 Sat Monitoring; Complete Time: 06:39 sp4 09/14 06:11 Order name: Urine Test (obtain specimen); Complete Time: 06:55 4 09/14 06:11 Order name: Chest Single View XRAY 4 09/14 06:49 Order name: CBC with Automated Diff; Complete Time: 07:21 EDMS 09/14 06:52 Order name: Protime (+INR); Complete Time: 07:21 EDMS 09/14 06:56 Order name: D-Dimer; Complete Time: 07:21 EDMS 09/14 07:02 Order name: Urine --Ancillary (enter results) rv1 09/14 07:02 Order name: Urine Dipstick-Ancillary; Complete Time: 07:21 EDMS 09/14 07:03 Order name: Basic Metabolic Panel; Complete Time: 07:21 EDMS 09/14 07:03 Order name: Liver (Hepatic) Function; Complete Time: 07:21 EDMS 09/14 07:03 Order name: Troponin High Sensitivity; Complete Time: 07:21 EDMS 09/14 07:03 Order name: NT PRO-BNP; Complete Time: 07:21 EDMS EC:22 Rate is 66 beats/min. Rhythm is regular. QRS [place] is Normal. OR interval is normal. QRS sp4 interval is normal. No ST changes noted. Clinical impression: Normal ECG. Interpreted by me. Administered Medications: 06:22 Drug: Aspirin Chewable Tablet 324 mg Route: PO; kd3 07:46 Follow up: Response: No adverse reaction ph 06:55 Drug: Ativan (LORazepam) 2 mg Route: PO; kd3 07:45 Follow up: Response: No adverse reaction ph Disposition Summary: 09/14/22 07:34 Discharge Ordered Location: Home sp4 Problem: new sp4 Symptoms: have improved sp4 Condition: Stable sp4 Diagnosis - Anxiety disorder, unspecified sp4 - Acute anxiety reaction, acute stress reaction, noncardiac chest pain sp4 Followup: sp4 - With: Private Physician - When: 7 - 10 days - Reason: Re-evaluation by your physician Followup: sp4 - With: Jefferson Narvaez MD - When: As needed - Reason: In case of symptomatic worsening consider visit with law office manager on outpatient basis Discharge Instructions: - Discharge Summary Sheet sp4 - Panic Attack sp4 Forms: - Work release form ph - Thank You Letter sp4 Signatures: Dispatcher [employer] Luiza Hartmann RN RN kd3 Inge murphy RN RN pf1 Sujit Deshpande MD MD sp4 Latonia Simmons RN ph
[2022-09-14 08:11] VITALS: BP 132/70; TEMP 97.9; O2SAT 99
[2022-09-14 08:43] LABS: Urine Specific Gravity/Preg >1.030 (1.005-1.030)
--- NOTE | 2022-09-14 13:54 | RAD REPORT ---
EXAM DESCRIPTION: RAD - Chest Single View - 09/14/2022 6:30 am CLINICAL HISTORY: 37 years Female CHEST PAIN COMPARISON: Chest x-ray 11/25/2016 FINDINGS: Lung volumes adequate. Cardiac silhouette is normal in size. No pneumothorax. No large pleural effusion. No focal consolidation. No acute bony finding. Dextrocurvature of the thoracic spine. IMPRESSION: No acute cardiopulmonary findings. Electronically signed by: Tomas Ring MD 09/14/2022 6:37 AM MANAGER FASHION Due to temporary technical issues with the PACS/Fluency reporting system, reports are being signed by the in house radiologists without review as a courtesy to insure prompt reporting. The interpreting radiologist is fully responsible for the content of the report.
--- NOTE | 2022-09-14 16:36 | EKG ---
Test Date: 2022-09-14 Test Time: 06:25:05 Ink Maker: RV MEASUREMENT RESULTS: Intervals: Rate: 66 VT: 172 QRSD: 90 QT: 394 QTc: 413 [place]: P: 59 VT: 172 QRS: 74 T: 50 INTERPRETIVE STATEMENTS: Normal sinus rhythm with sinus arrhythmia Normal ECG Compared to ECG 10/03/2009 19:36:23 No significant changes Electronically Signed On 09-14-22 16:35:30 COLLECTION ADVISOR by Jefferson Narvaez
== END 2022-09-14 07:46 | disposition home or self-care (01) ==
LOC: ER 06:07
DX: F43.0 Acute stress reaction (principal); F41.1 Generalized anxiety disorder; Z88.5 Allergy status to narcotic agent
CPT/HCPCS: 36415; 71045; 80048; 80076; 81003; 81025; 83880; 84484; 85025; 85379; 85610; 93005; 99284

== ENCOUNTER 2023-10-28 12:44 | Emergency (ER) | payer OTHER ==
--- NOTE | 2023-10-28 13:41 | RAD REPORT ---
EXAM DESCRIPTION: CT - Head Brain Wo Cont - 10/28/2023 1:32 pm CLINICAL HISTORY: Dizziness;Headache COMPARISON: HEAD BRAIN W O CONTRAST dated 10/03/2009 TECHNIQUE: All CT scans are performed using dose optimization technique as appropriate and may inclu de automated exposure control or mA/KV adjustment according to patient size. FINDINGS: No intracranial hemorrhage, hydrocephalus or extra-axial fluid collection.No areas of brai n edema or evidence of midline shift. The paranasal sinuses and mastoids are clear. The calvarium is intact. IMPRESSION: No acute intracranial abnormality.
[2023-10-28 13:46] LABS: Specific Gravity 1.019 (1.005-1.030); Urine Bilirubin NEGATIVE (Negative); Urine Blood Negative (Negative); Urine Clarity Clear (Clear); Urine Color Light-Yellow (Yellow); Urine Glucose NEGATIVE (Negative); Urine Ketones NEGATIVE (Negative); Urine Microscopic Reflex YN NO UMIC; Urine Nitrite NEGATIVE (Negative); Urine Protein NEGATIVE (Negative); Urine Urobilinogen Normal (Normal)
[2023-10-28] MEDS ORDERED: KETOROLAC 30 MG/ML INJ ONE (13:46)
[2023-10-28] MEDS ORDERED: NA CHLORIDE 0.9% 1,000 ML ONE (13:46)
[2023-10-28] MEDS ORDERED: DIPHENHYDRAMINE 50 MG/ML VIAL ONE (13:46)
[2023-10-28] MEDS ORDERED: METOCLOPRAMIDE 10 MG/2mL INJ ONE (13:46)
[2023-10-28 13:47] LABS: Specific Gravity 1.019 (1.005-1.030)
[2023-10-28 13:49] LABS: Absolute Basophils 0.1 K/uL (0-0.5); Absolute Eosinophils 0.4 K/uL (0-0.5); Absolute Lymphocytes (CBC) 5.4 K/uL (0.7-4.9); Absolute Monocytes 1.5 K/uL (0.1-1.3); Absolute Neutrophil 2.7 K/uL (1.8-8.0); Basophils % 1.3 % (0-1.3); Eosinophils % 4.3 % (0-4.4); Hematocrit 38.7 % (36.0-45.0); Hemoglobin 12.9 g/dL (12.0-15.0); Lymphocytes % 53.2 % (15.3-44.8); MCH 30.3 pg (27.0-35.0); MCHC 33.3 g/dL (32.0-36.0); MCV 91.1 fL (80-100); MPV 8.9 fL (7.6-11.3); Monocytes % 14.5 % (3.3-12.3); Neutrophils % 26.7 % (41.7-73.7); Platelets 404 thou/uL (152-406); RBC Red Blood Cell Count 4.25 M/uL (3.86-4.86); Red Cell Distribution Width 12.7 % (12.1-15.2)
[2023-10-28 13:55] LABS: SARS-CoV-2 Antigen CONTROL BLUE LINE VIS/BG OK; SARS-CoV-2 Antigen Rapid Res Negative (Negative)
[2023-10-28 14:16] LABS: ALT/SGPT 30 U/L (13-56); AST/SGOT 12 U/L (15-37); Albumin 3.9 g/dL (3.4-5.0); Albumin/Globulin Ratio 0.9 (1.1-1.8); Alkaline Phosphatase 73 U/L (45-117); Anion Gap 6.6 mEq/L (5.0-15.0); BUN Blood Urea Nitrogen 12 mg/dL (7-18); Bicarbonate 29 mEq/L (21-32); Bilirubin Total 0.2 mg/dL (0.2-1.0); Globulin 4.5 g/dL (2.3-3.5); Glomerular Filtration Rate 84 ml/min (=/>90); Glucose Level 87 mg/dL (74-106); Magnesium 2.3 mg/dL (1.6-2.4); Potassium 3.6 mEq/L (3.5-5.1); Protein, Total 8.4 g/dL (6.4-8.2); Sodium Level 137 mEq/L (136-145)
[2023-10-28 14:21] LABS: Bilirubin Direct < 0.1 mg/dL (0-0.2); Bilirubin Indirect, Calculated ND mg/dL (0.2-0.8)
--- NOTE | 2023-10-28 15:22 | EDPHYS ---
Physician Documentation [facility] Name: Maria Victoria Avery Age: 38 yrs Sex: Female : 1985 Arrival Date: 10/28/2023 Time: 12:44 Bed 6 Private MD: ED Physician Araceli Ochoa HPI: 10/27 13:09 This 38 yrs old Female presents to ER via Ambulatory with complaints of Weakness - sb4 Fatigue x3days. 13:09 Patient reports fatigue x 3 days associated with headache that starts at the sb4 right-sided base of her head and radiates up behind her right eye. She denies any prior history of headaches. She denies any other associated signs symptoms. No URI symptoms or sick contacts known. States that she just cannot function. Reports a few episodes of diarrhea but no nausea or vomiting. BENEFITS REPRESENTATIVE: 13:00 LMP N/A - Hysterectomy, Not as6 Historical: - Allergies: 12:59 Morphine; as6 - PMHx: 12:59 Anxiety; insomnia; thrombocytopenia; as6 - PSHx: 12:59 Appendectomy; Cholecystectomy; Splenectomy; Total abdominal hysterectomy; as6 - Immunization history:: Adult Immunizations up to date. - Infectious Disease History:: Denies. - Social history:: Smoking status: Patient denies any tobacco usage or history of. ROS: 13:09 Cardiovascular: Negative for chest pain, palpitations, and edema, sb4 13:09 Constitutional: Positive for fatigue, 13:09 Abdomen/GI: Positive for diarrhea, 13:09 Neuro: Positive for headache, 13:09 All other systems are negative, Exam: 13:09 Head/Face: Normocephalic, atraumatic. Eyes: Extra-ocular motions intact. Periorbital sb4 areas with no swelling, redness, or edema. ENT: Mucous membranes moist. Cardiovascular: Regular rate and rhythm with a normal S1 and S2. Respiratory: Lungs have equal breath sounds bilaterally, clear to auscultation and percussion. No rales, rhonchi or wheezes noted. No increased work of breathing, no retractions or nasal flaring. Abdomen/GI: Soft, non-tender, no distension. Skin: Warm, dry with normal turgor. Normal color with no rashes, no lesions, and no evidence of cellulitis. MS/ Extremity: Pulses equal, no cyanosis. Neurovascular intact. Full, normal range of motion. Neuro: Awake and alert, GCS 15, oriented to person, place, time, and situation. Motor strength 5/5 in all extremities. Sensory grossly intact. 13:09 Constitutional: The patient appears alert, awake, uncomfortable, Vital Signs: 12:58 BP 129 / 89; Pulse 79; Resp 15 S; Temp 97.8(TE); Pulse Ox 100% on R/A; Weight 78.02 kg as6 (R); Height 5 ft. 0 in. (R); Pain 5/10; 14:03 BP 137 / 86; Pulse 80; Resp 18; Pulse Ox 100% on R/A; ld1 12:58 Body Mass Index 33.59 (78.02 kg, 152.4 cm) as6 12:58 Pain Scale: Adult as6 MDM: 13:01 Patient medically screened. sb4 15:21 Data reviewed: vital signs, nurses notes, lab test result(s), radiologic studies, and sb4 as a result, I will discharge patient. Counseling: I had a detailed discussion with the patient and/or guardian regarding the historical points, exam findings, and any diagnostic results supporting the discharge/admit diagnosis, lab results, radiology results, to return to the emergency department if symptoms worsen or persist or if there are any questions or concerns that arise at home. 10/27 13:07 Order name: Basic Metabolic Panel; Complete Time: 14:22 sb4 10/27 13:07 Order name: CBC with Diff; Complete Time: 14:55 sb4 10/27 13:07 Order name: Hepatic Function; Complete Time: 14:22 sb4 10/27 13:07 Order name: Magnesium; Complete Time: 14:22 sb4 10/27 13:07 Order name: Test, Urine; Complete Time: 14:00 sb4 10/27 13:07 Order name: Urinalysis w/ reflexes; Complete Time: 13:47 sb4 10/27 13:08 Order name: TSH; Complete Time: 14:22 sb4 10/27 13:08 Order name: UDS sb4 10/27 13:09 Order name: SARS RAPID; Complete Time: 13:56 sb4 10/27 13:09 Order name: Flu; Complete Time: 13:56 sb4 10/27 13:07 Order name: CT Head Brain wo Cont; Complete Time: 13:42 sb4 10/27 13:07 Order name: Cardiac monitoring; Complete Time: 13:16 sb4 10/27 13:07 Order name: IV Saline Lock; Complete Time: 13:40 sb4 10/27 13:07 Order name: Labs collected and sent; Complete Time: 13:40 sb4 10/27 13:07 Order name: O2 Per Protocol; Complete Time: 13:16 sb4 10/27 13:07 Order name: O2 Sat Monitoring; Complete Time: 13:16 sb4 Administered Medications: 13:50 Drug: diphenhydrAMINE IVP 12.5 mg IVP once Route: IVP; Site: right forearm; ld1 15:51 Follow up: Response: No adverse reaction as6 13:51 Drug: NS 0.9% IV 1000 ml IV at 1 bolus Per protocol; 1000 mL bolus Route: IV; Rate: 1 ld1 bolus; Site: right forearm; 15:50 Follow up: Response: No adverse reaction; IV Status: Completed infusion; IV Intake: as6 1000ml 13:51 Drug: metoCLOPramide IVP 10 mg IVP once; over 1 to 2 minutes Route: IVP; Site: right ld1 forearm; 15:51 Follow up: Response: No adverse reaction as6 13:51 Drug: Ketorolac IVP 15 mg IVP once Route: IVP; Site: right forearm; ld1 15:51 Follow up: Response: No adverse reaction as6 Disposition Summary: 10/28/23 15:22 Discharge Ordered Notes: Location: Home sb4 Problem: new sb4 Symptoms: have improved sb4 Condition: Stable sb4 Diagnosis - Migraine sb4 Followup: sb4 - With: Emergency Department - When: As needed - Reason: Trouble breathing, Worsening of condition Discharge Instructions: - Discharge Summary Sheet sb4 - Migraine Headache, [id number] sb4 Forms: - Work release form sb4 - Thank You Letter sb4 - Patient Portal Instructions sb4 - Leadership Thank You Letter sb4 Prescriptions: - Imitrex 25 mg Oral Tablet - take 1 tablet ORAL route one time - x 1 dose with fluids as early as possible sb4 after the onset of a migraine attack; if headache returns, the dose may be repeated after 2 hours, not to exceed a total daily dose of 8 tablets; 12 tablet; Refills: 0, Product Selection Permitted - Zofran 4 mg Oral Tablet - take 1 tablet ORAL route every 12 hours As needed; 20 tablet; Refills: 0, sb4 Product Selection Permitted Signatures: Dispatcher [employer] Debbie Lewis, RN RN ld1 Grupo Cardona RN RN as6 Kamala Andrews PANonaC PAClaribel sb4 Corrections: (The following items were deleted from the chart) 13: 13:07 BASIC METABOLIC PANEL+C.LAB.BRZ ordered. EDMS EDMS 13: 13:07 CBC+H.LAB.BRZ ordered. EDMS EDMS 13: 13:07 HEPATIC FUNCTION+C.LAB.BRZ ordered. EDMS EDMS 13: 13:07 MAGNESIUM+C.LAB.BRZ ordered. EDMS EDMS 13:07 13:07 Test, Urine+UC.LAB.BRZ ordered. EDMS EDMS 13: 13:07 Urinalysis+U.LAB.BRZ ordered. EDMS EDMS
--- NOTE | 2023-10-28 15:22 | ER ---
Nurse's Notes [facility] Name: Maria Victoria Avery Age: 38 yrs Sex: Female : 1985 Arrival Date: 10/28/2023 Time: 12:44 Bed 6 Private MD: Diagnosis: Migraine Presentation: 10/27 12:58 Chief complaint: Patient states: weakness and fatigue with a "pressure" headache. as6 Coronavirus screen: At this time, the client does not indicate any symptoms associated with coronavirus-19. Ebola Screen: No symptoms or risks identified at this time. Initial Sepsis Screen: Does the patient meet any 2 criteria? No. Patient's initial sepsis screen is negative. Does the patient have a suspected source of infection? No. Patient's initial sepsis screen is negative. Risk Assessment: Do you want to hurt yourself or someone else? Patient reports no desire to harm self or others. Onset of symptoms was October 25, 2023. 12:58 Method Of Arrival: Ambulatory as6 12:58 Acuity: YAIR 3 as6 Triage Assessment: 13:00 General: Appears uncomfortable, Behavior is calm, cooperative. General: Reports fatigue as6 for. Pain: Complains of pain in head. Neuro: Reports headache. RECONCILIATION MANAGER: 13:00 LMP N/A - Hysterectomy, Not as6 Historical: - Allergies: 12:59 Morphine; as6 - PMHx: 12:59 Anxiety; insomnia; thrombocytopenia; as6 - PSHx: 12:59 Appendectomy; Cholecystectomy; Splenectomy; Total abdominal hysterectomy; as6 - Immunization history:: Adult Immunizations up to date. - Infectious Disease History:: Denies. - Social history:: Smoking status: Patient denies any tobacco usage or history of. Screenin:03 [facility] ED Fall Risk Assessment (Adult) History of falling in the last 3 months, ld1 including since admission No falls in past 3 months (0 pts). Abuse screen: Denies threats or abuse. Denies injuries from another. Nutritional screening: No deficits noted. Tuberculosis screening: No symptoms or risk factors identified. Assessment: 14:03 General: Appears in no apparent distress. comfortable, Behavior is calm, cooperative, ld1 appropriate for age. Pain: Complains of pain in face Pain does not radiate. Pain currently is 7 out of 10 on a pain scale. Quality of pain is described as throbbing, Pain began suddenly, Is continuous. Neuro: Level of Consciousness is awake, alert, obeys commands, Oriented to person, place, time, situation. Cardiovascular: Capillary refill < 3 seconds Patient's skin is warm and dry. Respiratory: Airway is patent Respiratory effort is even, unlabored. GI: Abdomen is round non-distended. : No signs and/or symptoms were reported regarding the genitourinary system. : No signs and/or symptoms were reported regarding the genitourinary system. EENT: No signs and/or symptoms were reported regarding the EENT system. Derm: No signs and/or symptoms reported regarding the dermatologic system. Musculoskeletal: No signs and/or symptoms reported regarding the musculoskeletal system. Vital Signs: 12:58 BP 129 / 89; Pulse 79; Resp 15 S; Temp 97.8(TE); Pulse Ox 100% on R/A; Weight 78.02 kg as6 (R); Height 5 ft. 0 in. (R); Pain 5/10; 14:03 BP 137 / 86; Pulse 80; Resp 18; Pulse Ox 100% on R/A; ld1 12:58 Body Mass Index 33.59 (78.02 kg, 152.4 cm) as6 12:58 Pain Scale: Adult as6 ED Course: 12:48 Patient arrived in ED. ra3 12:59 Triage completed. as6 13:00 Kamala Andrews PA-C is PHCP. sb4 13:00 Araceli Ochoa MD is Attending Physician. sb4 13:00 Arm band placed on. as6 13:27 Debbie Barrett, YENI is Primary Nurse. ld1 13:27 Flu Sent. ld1 13:27 SARS RAPID Sent. ld1 13:28 UDS Sent. ld1 13:28 Urinalysis w/ reflexes Sent. ld1 13:28 Test, Urine Sent. ld1 13:32 CT Head Brain wo Cont In Process Unspecified. EDMS 13:40 Inserted saline lock: 20 gauge in left antecubital area, using aseptic technique. Blood ld1 collected. 13:51 UDS Sent. ld1 13:51 Flu Sent. ld1 13:51 SARS RAPID Sent. ld1 14:03 Patient has correct armband on for positive identification. Placed in gown. Bed in low ld1 position. Call light in reach. Side rails up X2. master police detective on. Pulse ox on. NIBP on. Door closed. Noise minimized. Warm blanket given. 14:03 No provider procedures requiring assistance completed. ld1 15:51 Provided Education on: rx teaching. as6 15:52 IV discontinued, intact, bleeding controlled, No redness/swelling at site. Pressure as6 dressing applied. Administered Medications: 13:50 Drug: diphenhydrAMINE IVP 12.5 mg IVP once Route: IVP; Site: right forearm; ld1 15:51 Follow up: Response: No adverse reaction as6 13:51 Drug: NS 0.9% IV 1000 ml IV at 1 bolus Per protocol; 1000 mL bolus Route: IV; Rate: 1 ld1 bolus; Site: right forearm; 15:50 Follow up: Response: No adverse reaction; IV Status: Completed infusion; IV Intake: as6 1000ml 13:51 Drug: metoCLOPramide IVP 10 mg IVP once; over 1 to 2 minutes Route: IVP; Site: right ld1 forearm; 15:51 Follow up: Response: No adverse reaction as6 13:51 Drug: Ketorolac IVP 15 mg IVP once Route: IVP; Site: right forearm; ld1 15:51 Follow up: Response: No adverse reaction as6 Medication: 14:03 VIS not applicable for this client. ld1 Intake: 15:50 IV: 1000ml; Total: 1000ml. as6 Outcome: 15:22 Discharge ordered by . sb4 15:52 Discharged to home ambulatory, as6 15:52 Condition: stable 15:52 Discharge instructions given to patient, Instructed on discharge instructions, follow up and referral plans. medication usage, Demonstrated understanding of instructions, follow-up care, medications, Prescriptions given X 2, 15:52 Patient left the ED. as6 Signatures: Dispatcher [employer] EDMS Debbie Barrett RN RN ld1 Grupo Cardona RN RN as6 Kamala Andrews, ISIDORO PAClaribel lowe4 Isabel Shane ra3
[2023-10-28 17:07] LABS: Barbiturates NEGATIVE (NEGATIVE); Benzodiazepines NEGATIVE (NEGATIVE); Cocaine NEGATIVE (NEGATIVE); METHAMPHETAM NEGATIVE (NEGATIVE); Methadone NEGATIVE (NEGATIVE); Opiates NEGATIVE (NEGATIVE); Phencyclidine NEGATIVE (NEGATIVE); THC Cannibis NEGATIVE (NEGATIVE)
[2023-10-28 22:44] VITALS: BP 137/86; TEMP 97.8; O2SAT 100
== END 2023-10-28 15:52 | disposition home or self-care (01) ==
LOC: ER 12:44
DX: G43.909 Migraine, unspecified, not intractable, without status migrainosus (principal); Z11.52 Encounter for screening for COVID-19; Z88.5 Allergy status to narcotic agent
CPT/HCPCS: 96361; 85025; 80048; 36415; 83735; 81025; 80076; 84443; 81003; 80307; 87804 ×2; 70450; 96375; 96374; 99285; 87811; J2765; J1200; J7030